=== PATIENT | female | born 1965 | race Caucasian/White ===

== ENCOUNTER 2021-12-04 19:17 | Emergency (ER) | payer OTHER ==
[~2021-12-04] VITALS: Ht 175.3 cm; Wt 83.9 kg
--- NOTE | 2021-12-04 19:39 | NUR ---
PT PLACED IN ROOM 2A.
--- NOTE | 2021-12-04 19:55 | NUR ---
Dr mena at bedside, MSE in progress.
[2021-12-04] MEDS ORDERED: HYDR-4209 PO (19:56)
[2021-12-04] MEDS ORDERED: ONDA4TAB5 PO (19:56)
[2021-12-04] MEDS ORDERED: LABETALOL HCL 100 MG TABLET PO ONE (20:00)
--- NOTE | 2021-12-04 20:08 | NUR ---
Patient discharged to home in stable condition. Written and verbal after care instructions given. Patient verbalizes understanding of instructions. Stressed follow up or return to ER for worsening s/s. pt ambulated with steady gait. no SOB. no chest pain. AOx4
[2021-12-04 20:14] VITALS: BP 132/83
== END 2021-12-04 20:14 | disposition home or self-care (01) ==
LOC: ER 19:22
DX: G89.29 Other chronic pain (principal); M54.50 Low back pain, unspecified; Z88.0 Allergy status to penicillin; R03.0 Elevated blood-pressure reading, without diagnosis of hypertension
CPT/HCPCS: A4663

== ENCOUNTER 2022-07-01 18:37 | Emergency (ER) | payer SELFPAY ==
[~2022-07-01 18:37] MED LIST: HYDR-4209 PO; ONDA4TAB5 PO
--- NOTE | 2022-07-01 19:40 | NUR ---
Patient called to be triaged but was not present in the waiting room or outside of ER.
--- NOTE | 2022-07-01 20:00 | NUR ---
Patient was called to be triaged but was not present. PATIENT WAS NOT TRIAGED OR SEEN BY ERMD.
== END 2022-07-01 20:30 | disposition left against medical advice (07) ==
LOC: ER 18:37
DX: Z53.21 Procedure and treatment not carried out due to patient leaving prior to being seen by health care provider (principal)